=== PATIENT | female | born 1940 | race Caucasian/White ===

== ENCOUNTER 2019-05-21 21:44 | Inpatient (IN) | payer MEDICARE ==
[~2019-05-21] VITALS: Ht 167.6 cm; Wt 66.2 kg
[~2019-05-21 21:44] MED LIST: CEPHALEXIN500 MG OR; LORTAB5 PO; NO HOME MEDS
--- NOTE | 2019-05-21 21:48 | NUR ---
PT WHEELED STRAIGHT BACK TO ROOM 12 FOR TRIAGE. PT HAS LARGE DRINK IN HAND. PT ABLE TO SPEAK IN COMPLETE SENTENCES.
--- NOTE | 2019-05-21 21:54 | NUR ---
PT TO ROOM VIA WC
[2019-05-21] MEDS ORDERED: HYDROCHLOROT25 MG PO (22:07)
[2019-05-21] MEDS ORDERED: NORVASC10 M1 PO (22:08)
[2019-05-21] MEDS ORDERED: XANAX0.25 MG PO (22:08)
[2019-05-21] MEDS ORDERED: MECLIZINE25 MG PO (22:09)
[2019-05-21] MEDS ORDERED: LEVALBUTER1.25 MG/1 IN (22:10)
[2019-05-21 22:55] LABS: HEMOGLOBIN 13.7 g/dl (12.0-16.0); IMMATURE GRANULOCYTES 0.4 % (0.0-5.0); MEAN CELL VOLUME 81.9 fL CALC (80.0-100.0); MEAN CORPUSCULAR HGB 28.8 pG CALC (26.0-32.0); MEAN CORPUSCULAR HGB CONC 35.1 g/L CALC (32.0-36.0); NEUT# 6.69 thou/uL (2.00-7.15); RED BLOOD COUNT 4.76 mill/uL (4.20-5.60); RED CELL DISTRI WIDTH 13.4 % (11.5-15.5)
[2019-05-21 23:06] LABS: ALBUMIN 4.2 g/dL (3.2-5.0); ALKALINE PHOSPHATASE 97 u/l (38-126); ANION GAP 16 (6-22 (CALC)); BILIRUBIN, TOTAL 1.2 mg/dL (0.0-1.4); BUN 3 mg/dL (8-23); BUN/CREATININE RATIO 6 (12-20 (CALC)); CARBON DIOXIDE 29 mmol/l (22-30); CHLORIDE 82 mmol/l (95-108); CREATININE 0.5 mg/dL (0.5-1.0); GFR > 60 ML/MIN (>=60 (CALC)); GFR FOR AFR.AMER. > 60 ML/MIN (>=60 (CALC)); POTASSIUM 3.4 mmol/l (3.5-5.1); SGOT/AST 19 u/l (9-36); SODIUM 123 mmol/l (137-146); TOTAL PROTEIN 6.6 g/dL (6.3-8.2)
[2019-05-21 23:18] LABS: MYOGLOBIN 22 ng/mL (0 - 62)
--- NOTE | 2019-05-22 00:25 | NUR ---
REPORT TO LASHANDA/ANJALI
--- NOTE | 2019-05-22 00:35 | NUR ---
PT RECEIVED FROM [facility] VIA STRETCHER ACCOMPANIED BY NURSE. ASSISTED IN TO BED. PT IS ALERT AND ORIENTED X3. O2 N/C ON AT 2L. YELLOW FALL BRACELET AND ALLERGY BRACELET APPLIED. SKIN INTACT. RESP EVEN AND UNLABORED. LUNGS REVEAL COARSE BREATH SOUNDS IN MID TO UPPER LOBES WITH DIMINISHED BREATH SOUNDS IN BILAT BASES. ABD SOFT AND NONDISTENDED WITH BOWEL SOUNDS PRESENT. NO LOWER EXT EDEMA NOTED. PEDAL PULSES PALAPTED BILAT. HEPLOCK PATENT IN LEFT A.C AND FLUSHED WITHOUT ANY DIFFICULTY. TELE INTACT. PT ORIENTED TO ROOM AND CALL [place]. PT DECLINES FLU VACCINE AT THIS TIME AND WOULD LIKE TO SPEAK WITH DR RUBY. PT STATES SHE HAS HAD PNEUMONIA VACCINE 3-4 YEARS AGO. PT DENIES ANY SHORTNESS OF BREATH OR DISCOMFORT AT THIS TIME. FREQUENT ROUNDS MADE. CALL [place] WITHIN REACH.
--- NOTE | 2019-05-22 00:35 | NUR ---
TO FLOOR VIA STRETCHER WITH O2. ANTIBIOTICS INFUSING.
[2019-05-22 01:00] VITALS: BP 123/72
--- NOTE | 2019-05-22 01:30 | NUR ---
PT AWAKE RESTING IN BED. RESP EVEN AND UNLABORED. O2 N/C ON AT 2L. NO DISTRESS NOTED. OFFERS NO COMPLAINTS. TELE INTACT. FREQUENT ROUNDS MADE. CALL [place] WITHIN REACH .
--- NOTE | 2019-05-22 02:30 | NUR ---
RESTING IN BED WITH EYES CLOSED. RESP EVEN AND UNLABORED. NO DISTRESS NOTED. O2 N/C ON AT 2L. CALL [place] WITHIN REACH.
[2019-05-22 03:35] VITALS: BP 98/63
--- NOTE | 2019-05-22 04:28 | NUR ---
ASSISTED BACK TO BED AFTER USING BSC. VOIDED 200CC OF CLEAR JASON URINE. RESP EVEN AND UNLABORED. NO DISTRESS NOTED WITH ACTIVITY. TELE INTACT. OFFERS NO COMPLAINTS. CALL [place] WITHIN REACH.
--- NOTE | 2019-05-22 06:30 | NUR ---
RESTING IN BED. OFFERS NO COMPLAINTS. RESP EVEN AND UNLABORED. CALL [place] WITHIN REACH.
--- NOTE | 2019-05-22 07:05 | NUR ---
PT REPORT RECIEVED FROM ESPERANZA PYLE. PT SLEEPING. NO S/S OF DISTRESS. CALL LIGHT IN REACH. WILL CONTINUE TO MONITOR.
[2019-05-22 08:20] VITALS: BP 112/57
--- NOTE | 2019-05-22 09:20 | NUR ---
PT A/O X3. RESP EVEN AND UNLABORED. LUNG SOUNDS DIMINISHED. NONPRODUCTIVE COUGH NOTED. TELE IN PLACE. O2 @2L ON PT. BOWEL SOUNDS ACTIVE X4. STRONG RADIAL, WEAK PEDAL PULSES. #20 LAC NS @100. SITE APPEARS HEALTHY. SKIN INTACT. PT DENIES ANY PAIN OR NEEDS. POC DISCUSSED. SAFETY PRECAUTIONS IN PLACE. CALL [place] IN REACH. WILL CONTINUE TO MONITOR.
[2019-05-22 11:52] VITALS: BP 111/57
--- NOTE | 2019-05-22 12:42 | NUR ---
PT WATCHING TELEVISION. NO C/O PAIN OR NEEDS. O2 @2L ON PT. IV FLUIDS INFUSING. CALL LIGHT IN REACH. WILL CONTINUE TO MONITOR.
[2019-05-22 16:23] VITALS: BP 118/54
--- NOTE | 2019-05-22 16:35 | NUR ---
PT WATCHING TELEVISION. NO C/O PAIN OR NEEDS. CALL LIGHT IN REACH. WILL CONTINUE TO MONITOR.
[2019-05-22 17:21] LABS: URINE BILIRUBIN - DIPSTICK NEGATIVE (NEGATIVE); URINE BLOOD DIPSTICK TRACE-INTACT (NEGATIVE); URINE COLOR YELLOW; URINE GLUCOSE - DIPSTICK 250 mg/dL (NEGATIVE); URINE KETONE NEGATIVE (NEGATIVE); URINE LEUK ESTERASE NEGATIVE (NEGATIVE); URINE NITRITE - DIPSTICK NEGATIVE (Negative); URINE PROTEIN - DIPSTICK NEGATIVE (NEG-TRACE); URINE UROBILINOGEN - DIPSTICK 0.2 E.U./dL (0.2)
--- NOTE | 2019-05-22 18:01 | NUR ---
SAS [employer] DEVELOPER STATES PT RUNNING ST IN 120S. AND JOSE DIXON AT BEDSIDE DISCUSSING POC W/ PT. WILL CONTINUE TO MONITOR.
--- NOTE | 2019-05-22 20:00 | NUR ---
PT AWAKE RESTING IN BED. ALERT AND ORIENTED X3. RESP EVEN AND UNLABORED. O2 N/C ON AT 2L. LUNGS REVEAL DIMINISHED BREATH SOUNDS. ABD SOFT WITH BOWEL SOUNDS PRESENT. NO LOWER EXT EDEMA NOTED . PEDAL PULSES PALPATED BILAT. TELE INTACT. IV SITE PATENT NSS AT 100CC/HR. PT DENIES ANY DISCOMFORT. CALL [place] WITHIN REACH.
[2019-05-22 21:19] VITALS: BP 104/58
[2019-05-23] VITALS (7 sets, daily range): BP systolic 101–120; BP diastolic 50–58
--- NOTE | 2019-05-23 00:15 | NUR ---
PT AWAKE RESTING IN BED. RESP EVEN AND UNLABORED. O2 N/C ON AT 2L. IV SITE PATENT. OFFERS NO COMPLAINTS. TELE INTACT. FREQUENT ROUNDS MADE. CALL [place] WITHIN REACH.
--- NOTE | 2019-05-23 04:15 | NUR ---
PT RESTING IN BED WITH EYES CLOSED. NO DISTRESS NOTED. IV SITE PATENT. ASSESSMENT UNCHANGED. CALL [place] WITHIN REACH.
[2019-05-23 05:27] LABS: IMMATURE GRANULOCYTES 0.3 % (0.0-5.0); MEAN CELL VOLUME 82.2 fL CALC (80.0-100.0); MEAN CORPUSCULAR HGB 29.3 pG CALC (26.0-32.0); MEAN CORPUSCULAR HGB CONC 35.6 g/L CALC (32.0-36.0); NEUT# 9.57 thou/uL (2.00-7.15); RED BLOOD COUNT 3.93 mill/uL (4.20-5.60); RED CELL DISTRI WIDTH 13.6 % (11.5-15.5)
[2019-05-23 05:34] LABS: HEMATOCRIT 32.3 % (37.0-47.0); HEMOGLOBIN 11.5 g/dl (12.0-16.0)
[2019-05-23 05:42] LABS: ANION GAP 15 (6-22 (CALC)); BUN 6 mg/dL (8-23); BUN/CREATININE RATIO 18 (12-20 (CALC)); CARBON DIOXIDE 25 mmol/l (22-30); CHLORIDE 92 mmol/l (95-108); CREATININE 0.4 mg/dL (0.5-1.0); GFR > 60 ML/MIN (>=60 (CALC)); GFR FOR AFR.AMER. > 60 ML/MIN (>=60 (CALC)); MAGNESIUM 1.7 mg/dL (1.6-2.3); POTASSIUM 3.5 mmol/l (3.5-5.1); SODIUM 128 mmol/l (137-146)
--- NOTE | 2019-05-23 06:09 | NUR ---
NO 0400 TELE READING HAVE BEEN FAXED FROM [facility]. UNABLE TO CHART 0400 TELE READINGS. PT RESTING IN BED OFFERS NO COMPLAINTS. CALL [place] WITHIN REACH.
--- NOTE | 2019-05-23 06:55 | NUR ---
PT REPORT RECEIVED FROM ESPERANZA PYLE. PT SLEEPING. NO S/S OF DISTRESS. CALL LIGHT IN REACH. WILL CONTINUE TO MONITOR.
--- NOTE | 2019-05-23 07:46 | NUR ---
PT A/O X3. RESP EVEN AND UNLABORED. LUNGS DIMINISHED. O2 @2L ON PT. BOWEL SOUNDS ACTIVE X4. STRONG RADIAL, WEAK PEDAL PULSES. #20 LAC NS @100. SITE APPEARS HEALTHY. SKIN INTACT. PT DENIES ANY PAIN OR NEEDS. POC DISCUSSED. SAFETY PRECAUTIONS IN PLACE. CALL LIGHT IN REACH. WILL CONTINUE TO MONITOR.
--- NOTE | 2019-05-23 11:39 | NUR ---
PT WATCHING TELEVISION. O2 @2L. PT DENIES ANY PAIN OR NEEDS. CALL LIGHT IN REACH. WILL CONTINUE TO MONITOR
--- NOTE | 2019-05-23 16:45 | NUR ---
PT TALKING W/ FRIEND. NO C/O PAIN OR NEEDS. CALL LIGHT IN REACH. IV FLUIDS INFUSING. WILL CONTINUE TO MONITOR.
--- NOTE | 2019-05-23 20:10 | NUR ---
PT AWAKE RESTING IN BED WATCHING T.V. RESP EVEN AND UNLABORED. PT IS ALERT AND ORIENTED X3. O2 N/C ON AT 2L. LUNGS REVEAL DIMINISHED BREATH SOUNDS. ABD SOFT AND NONDISTENDED WITH BOWEL SOUNDS PRESENT. NO LOWER EXT EDEMA NOTED. PEDAL PULSES PALPATED BILAT. IV SITE PATENT IN LEFT A.C. WITH NSS AT 100CC/HR. TELE INTACT. PT WAITING TO BE TX TO [facility] BUT PER SHIFT REPORT NO BED AVAILABLE. PT DOES HAVE AN ADMITTING DR. PT IS AWARE OF TX. FREQUENT ROUNDS MADE. CALL [place] WITHIN REACH.
--- NOTE | 2019-05-24 00:23 | NUR ---
PT AWAKE RESTING IN BED. RESP EVEN AND ULABORED. NO DISTRESS NOTED. VSS. O2 N/C ON AT 2L. IV SITE PATENT. TELE INTACT. FREQUENT ROUNDS MADE. STILL WAITING FOR A CALL FROM [facility] IN REGARDS TO BED BEING AVAILABLE.
--- NOTE | 2019-05-24 02:25 | NUR ---
RESTING IN BED WITH EYES CLOSED. RESP EVEN AND UNLABORED. NO DISTRESS NOTED. IV SITE PATENT NO REDNESS OR SWELLING AT SITE. TELE INTACT. FREQUENT ROUNDS MADE. NO CALL FROM [facility] . CONTINUE TO WAIT ON A BED FOR [place].
[2019-05-24 04:00] VITALS: BP 118/59
--- NOTE | 2019-05-24 04:00 | NUR ---
PT WOKE AND VITALS OBTAINED. VSS. RESP EVEN AND UNLABORED. NO DISTRESS NOTED. O2 SAT 99% ON 2L N/C. IV SITE PATENT. OFFERS NO COMPLAINTS. STILL WAITING ON A BED AT [facility] NO CALL RECEIVED. INSTALLATION TECH IGOR MATA INFORMED NO CALL RECEIVED.
[2019-05-24 07:42] VITALS: BP 115/63
--- NOTE | 2019-05-24 08:00 | NUR ---
PT AT REST IN THE BED, NO DISTRESS, WAITS ON TRANSFER TO [facility]. PT DENIES SHORTNESS OF BREATH. LUNGS CLEAR, 2 LPM. SKIN INTACT. PT IS AMBULATORY IN ROOM WITH STEADY GAIT.
[2019-05-24 10:51] VITALS: BP 128/64
--- NOTE | 2019-05-24 12:08 | NUR ---
PT CONTINUES TO WAIT FOR ROOM AT [facility] PRIOR TO DISCHARGE TO THERE. SHE OFFERS NO COMPLAINTS, NO SHORTNESS OF BREATH, NO CHEST PAIN. DAUGHTER HAS BEEN AT BEDSIDE THIS MORNING.
--- NOTE | 2019-05-24 13:23 | NUR ---
[facility] HERE TO TRANSPORT PT TO [facility]. PT LEAVES IN STABLE CONDITION, NO COMPLAINT OF PAIN OR SHORTNESS OF BREATH UPON DEPARTURE.
--- NOTE | 2019-05-24 13:34 | NUR ---
REPORT PROVIDED TO NURSE DAO AT [facility]. REPORT NUMBER [phone].
== END 2019-05-24 13:23 | disposition short-term general hospital (02) | DRG 194 ==
LOC: ED 21:44 → ED-I 23:36 → ED 23:56 → MS2 23:57
PROVIDERS: Emergency Medicine; Nurse Practitioner Family; ADMIT Internal Medicine; ATTEND Internal Medicine
DX: J18.9 Pneumonia, unspecified organism (principal); E87.1 Hypo-osmolality and hyponatremia; J43.9 Emphysema, unspecified; R91.8 Other nonspecific abnormal finding of lung field; I10 Essential (primary) hypertension; F41.1 Generalized anxiety disorder; R42 Dizziness and giddiness; E87.6 Hypokalemia; F17.200 Nicotine dependence, unspecified, uncomplicated
CPT/HCPCS: J1650; Q9967